=== PATIENT | male | born 1950 | race Caucasian/White ===

== ENCOUNTER 2017-08-28 13:03 | Outpatient (CLI) | payer MEDICARE | END 2017-08-28 13:04 | disposition home or self-care (01) | LOC: BICMRI 13:03 | PROVIDERS: ATTEND Family Medicine | DX: M67.911 Unspecified disorder of synovium and tendon, right shoulder (principal); M75.101 Unspecified rotator cuff tear or rupture of right shoulder, not specified as traumatic; M67.80 Other specified disorders of synovium and tendon, unspecified site; S43.015A Anterior dislocation of left humerus, initial encounter; Z98.890 Other specified postprocedural states ==

== ENCOUNTER 2017-11-21 10:54 | Outpatient (CLI) | payer MEDICARE ==
[2017-11-21] MEDS ORDERED: ISOVUE-370 76%-LOCM 1 ML ONE (15:15)
== END 2017-11-21 10:55 | disposition home or self-care (01) ==
LOC: BICCT 10:54
PROVIDERS: ATTEND Family Medicine
DX: J61 Pneumoconiosis due to asbestos and other mineral fibers (principal); R59.0 Localized enlarged lymph nodes; J84.10 Pulmonary fibrosis, unspecified
CPT/HCPCS: 71260; 82565